=== PATIENT | female | born 1980 | race Caucasian/White ===

== ENCOUNTER → 2020-10-02 | Outpatient (CLI) | payer OTHER | LOC: SJCVC 09:17 → SJCVCIMAG 09:17 → SJCVC 15:35 | PROVIDERS: ATTEND Internal Medicine | DX: I31.3 Pericardial effusion (noninflammatory) (principal); I47.1 Supraventricular tachycardia; Z87.891 Personal history of nicotine dependence ==

== ENCOUNTER → 2020-11-20 | Outpatient (CLI) | payer OTHER | LOC: SJCVCIMAG 08:39 | PROVIDERS: ATTEND Internal Medicine | DX: I30.9 Acute pericarditis, unspecified (principal) ==

== ENCOUNTER → 2021-04-03 | Outpatient (CLI) | payer OTHER | LOC: SJCVCIMAG 08:56 | PROVIDERS: ATTEND Internal Medicine | DX: R07.9 Chest pain, unspecified (principal); R06.02 Shortness of breath; Z87.891 Personal history of nicotine dependence; Z88.8 Allergy status to other drugs, medicaments and biological substances; Z88.1 Allergy status to other antibiotic agents; Z79.899 Other long term (current) drug therapy ==